=== PATIENT | female | born 1930 | race Caucasian/White ===

== ENCOUNTER 2020-02-27 23:26 | Emergency (ER) | payer MEDICARE, BC ==
[~2020-02-27] VITALS: Ht 160 cm; Wt 59.4 kg
[2020-02-27 23:47] LABS: ABSOLUTE BASOPHILS 0.1 thou/uL (0.0-0.2); ABSOLUTE EOSINOPHILS 0.3 thou/uL (0.0-0.7); ABSOLUTE LYMPHOCYTES 1.6 thou/uL (0.8-5.3); ABSOLUTE MONOCYTES 0.6 thou/uL (0.0-1.2); ABSOLUTE NEUTROPHILS 3.9 thou/uL (1.6-8.1); BASOPHILS 1.3 %; EOSINOPHILS 5.1 %; HEMATOCRIT 36.3 % (37.0-47.0); HEMOGLOBIN 12.2 gm/dL (12.0-15.0); LYMPHOCYTES 25.1 %; MCH 31.1 pg (26.0-34.0); MCHC 33.7 g/dL (28.0-37.0); MCV 92.3 fL (80.0-100.0); MONOCYTES 9.1 %; MPV 8.2 fl. (7.2-11.1); NUCLEATED RBCS 0 /100WBC; PLATELET COUNT* 189 thou/uL (150-400); POLYS 59.4 %; RBC 3.93 mil/uL (4.20-5.00); RDW-CV 12.7 % (10.5-14.5); WBC 6.5 thou/uL (4.0-11.0)
[2020-02-27 23:55] LABS: CALCIUM 8.6 mg/dL (8.5-10.1); CREATININE 1.1 mg/dL (0.6-1.3); POTASSIUM 3.8 mmol/L (3.5-5.1); PROTIME 10.5 Seconds (9.20-11.50)
[2020-02-27] MEDS ORDERED: LOW DOSE ASPIRI81 M1 PO (23:59)
[2020-02-27] MEDS ORDERED: PAIN RELIEF325 MG PO (23:59)
[2020-02-28] LABS: ALBUMIN 3.3 g/dL (3.4-5.0); TOTAL BILIRUBIN 0.2 mg/dL (<0.1-1.0); TOTAL PROTEIN 6.4 g/dL (6.4-8.2)
[2020-02-28] MEDS ORDERED: DILTIAZEM ER360 M1 PO (00:23)
[2020-02-28] MEDS ORDERED: LISINOPRIL10 MG PO (00:24)
[2020-02-28] MEDS ORDERED: MELATONIN3 M1 PO (00:24)
[2020-02-28] MEDS ORDERED: NAMENDA 10 MG T10 MG PO (00:24)
[2020-02-28] MEDS ORDERED: OMEPRAZOLE40 MG PO (00:24)
[2020-02-28] MEDS ORDERED: PAXIL20 MG PO (00:25)
[2020-02-28] MEDS ORDERED: PAXIL 20 MG TAB20 MG PO (00:25)
[2020-02-28] MEDS ORDERED: SEROQUEL 25 MG25 MG PO ×2 (00:26→00:28)
[2020-02-28] MEDS ORDERED: AZILECT1 MG PO (00:26)
[2020-02-28] MEDS ORDERED: TRAZODONE HCL50 MG PO (00:26)
[2020-02-28] MEDS ORDERED: PROAIR HFA8.5 GM INH (00:27)
[2020-02-28] MEDS ORDERED: HYDROXYZINE HCL25 M2 PO (00:27)
[2020-02-28] MEDS ORDERED: VITAMIN B-121000 MC2 PO (00:27)
[2020-02-28] MEDS ORDERED: NYSTATIN-TRIAMC15 GM TOP (00:28)
[2020-02-28 02:00] VITALS: BP 113/51
== END 2020-02-28 02:00 | disposition home or self-care (01) ==
LOC: M.ERS 23:26
PROVIDERS: Family Medicine
DX: S09.93XA Unspecified injury of face, initial encounter (principal); I10 Essential (primary) hypertension; E78.5 Hyperlipidemia, unspecified; K21.9 Gastro-esophageal reflux disease without esophagitis; F03.90 Unspecified dementia, unspecified severity, without behavioral disturbance, psychotic disturbance, mood disturbance, and anxiety; R79.1 Abnormal coagulation profile; W18.39XA Other fall on same level, initial encounter; Y93.89 Activity, other specified; Y92.89 Other specified places as the place of occurrence of the external cause; Y99.8 Other external cause status; Z88.8 Allergy status to other drugs, medicaments and biological substances; Z79.899 Other long term (current) drug therapy

== ENCOUNTER 2020-02-29 15:39 | Emergency (ER) | payer MEDICARE, BC ==
[~2020-02-29] VITALS: Ht 157.5 cm; Wt 65.8 kg
[~2020-02-29 15:39] MED LIST: AZILECT1 MG PO; DILTIAZEM ER360 M1 PO; HYDROXYZINE HCL25 M2 PO; LISINOPRIL10 MG PO; LOW DOSE ASPIRI81 M1 PO; MELATONIN3 M1 PO; NAMENDA 10 MG T10 MG PO; NYSTATIN-TRIAMC15 GM TOP; OMEPRAZOLE40 MG PO; PAIN RELIEF325 MG PO; PAXIL 20 MG TAB20 MG PO; PAXIL20 MG PO; PROAIR HFA8.5 GM INH; SEROQUEL 25 MG25 MG PO; TRAZODONE HCL50 MG PO; VITAMIN B-121000 MC2 PO
[2020-02-29 19:01] VITALS: BP 126/48
== END 2020-02-29 19:02 | disposition home or self-care (01) ==
LOC: M.ERS 15:39
DX: M25.552 Pain in left hip (principal); F03.90 Unspecified dementia, unspecified severity, without behavioral disturbance, psychotic disturbance, mood disturbance, and anxiety; W17.89XA Other fall from one level to another, initial encounter; Y93.89 Activity, other specified; Y92.128 Other place in nursing home as the place of occurrence of the external cause; Y99.8 Other external cause status